=== PATIENT | female | born 1930 | race Caucasian/White ===

== ENCOUNTER 2020-09-05 11:55 | Emergency (ER) | payer MEDICARE ==
[~2020-09-05] VITALS: Ht 157.5 cm; Wt 46.0 kg
[2020-09-05 12:01] VITALS: BP 148/87
--- NOTE | 2020-09-05 13:33 | RAD ---
EXAM: XR KNEE 3 VIEWS_RT 09/05/2020 12:16 PM CLINICAL INDICATION: Right knee pain COMPARISON: None TECHNIQUE: 3 views of the right knee FINDINGS: No acute fracture. Alignment is normal. There is moderate medial compartment narrowing wit h small osteophytes. Lateral compartment is maintained. There are tiny patellofemoral osteophytes. Sm all joint effusion. Vascular calcifications are seen. IMPRESSION: Moderate medial compartment osteoarthrosis. Small joint effusion. Electronically signed by: Madison Kendrick MD (09/05/2020 1:31 PM) [id number]
--- NOTE | 2020-09-05 14:23 | PHYS DOC ---
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 Vazquez." Denies any falls, trauma or injury. Cannot recall home medications and is asking if she can be referred to Dr. Herrmannneys office. Pt with multiple compliants stating "I saw on tv it's cancer." Reports pain has been progressively worsening for the past few months. Denies any associated fever, rash Review of Systems: Review of Systems: Constitutional: Denies fever or chills Eyes: Denies change in visual acuity HENT: Denies nasal congestion or sore throat Respiratory: Denies cough or shortness of breath Cardiovascular: Denies chest pain or edema GI: Denies nausea, vomiting, : Denies dysuria or hematuria Musculoskeletal: Denies back pain or cva tenderness Integument: Denies rash or diaphoresis Neurologic: Denies headache, focal weakness or sensory changes Psychiatric: Denies depression or anxiety Physical Exam: PE: Constitutional: Well developed, well nourished, no acute distress, non-toxic appearance. HENT: Normocephalic, atraumatic, Eyes: EOMI, conjunctiva normal, no discharge. Neck: Normal range of motion, supple, Cardiovascular: S1/2 present, regular rhythm Lungs & Thorax: Speaking in full sentences, bilateral equal chest rise, no tachypnea or increased work of breathing Abdomen: soft, no tenderness, Skin: Warm, dry, no erythema, no rash. [] Back: No tenderness, no CVA tenderness. [] Extremities: No tenderness, no cyanosis, no lower extremity edema Neurologic: Alert and oriented X 3, normal motor function, normal sensory function, no focal deficits noted. [] Psychologic: Affect normal, judgement normal, mood normal. [] Current Patient Data: Vital Signs: Vital Signs Date Time Temp Pulse Resp B/P (MAP) Pulse Ox O2 Delivery O2 Flow Rate FiO2 09/05/20 12:01 98.1 100 16 148/87 95 Room Air EKG: EKG: [] Radiology/Procedures: Radiology/Procedures: []IMAGING REPORT Signed PATIENT: TONA MORENO ACCOUNT: [id number] : 1930 LOCATION: ER AGE: 89 SEX: F EXAM STATUS: REG ER ORD. PHYSICIAN: VIJAY HAWTHORNE DO REASON: right kne pain PROCEDURE: KNEE RIGHT 3V EXAM: XR KNEE 3 VIEWS_RT 09/05/2020 12:16 PM CLINICAL INDICATION: Right knee pain COMPARISON: None TECHNIQUE: 3 views of the right knee FINDINGS: No acute fracture. Alignment is normal. There is moderate medial compartment narrowing with small osteophytes. Lateral compartment is maintained. There are tiny patellofemoral osteophytes. Small joint effusion. Vascular calcifications are seen. IMPRESSION: Moderate medial compartment osteoarthrosis. Small joint effusion. Electronically signed by: Madison Kendrick MD (09/05/2020 1:31 PM) [id number] DICTATED AND SIGNED BY: MADISON KENDRICK MD DATE: 09/05/20 1329 CC: VIJAY HAWTHORNE DO; MARRY DAVIS ~MTH0 0 Heart Score: C/O Chest Pain: No Risk Factors: Risk Factors: DM, Current or recent (<one month) smoker, HTN, HLP, family history of CAD, obesity. Risk Scores: Score 0 - 3: 2.5% MACE over next 6 weeks - Discharge Home Score 4 - 6: 20.3% MACE over next 6 weeks - Admit for Clinical Observation Score 7 - 10: 72.7% MACE over next 6 weeks - Early Invasive Strategies Course & Med Decision Making: Course & Med Decision Making Pertinent Labs and Imaging studies reviewed. (See chart for details) Will discharge home with strict ED return precautions were given for []. Encouraged urgent outpatient follow-up with PMD and orthopedic surgery for definitive management. Life-threatening processes were considered but are low suspicion at this time, given history, physical exam and ED workup. Pt was educated on all prescription medications and adverse effects. All patient's questions were answered and pt was stable at time of discharge. Life/limb-threatening differential includes but is not limited to, avascular nec rosis, septic arthritis, malignancy, compartment syndrome, fracture/ligamentous injury/overuse, decompression sickness, seronegative spondyloarthropathies, trauma including dislocation/fracture, Lyme disease, lupus, arthritis differentials, gout/pseudogout or decompression sickness. I have spoken with the patient and/or caregivers. I explained the patient's condition, diagnoses and treatment plan based on the information available to me at this time. I have answered the patient and/or caregiver's questions and addressed any concerns. The patient and/or caregivers have a good understanding of patient's diagnosis, condition and treatment plan as can be expected at this point. Vital signs have been stable. Patient's condition is stable and appropriate for discharge from the emergency department. Patient will pursue further outpatient evaluation with primary care physician or other designated or consulting physician as outlined in the discharge instructions. The patient and/or caregivers are agreeable to this plan of care and follow-up instructions have been explained in detail. The patient and/or caregivers have received these instructions in written form and have expressed an understanding of the discharge instructions. The patient and/or caregivers are aware that any significant change of condition or worsening of symptoms should prompt immediate return to this or the closest emergency department or call to [id number] Doll Disclaimer: Sharmila Disclaimer: This electronic medical record was generated, in whole or in part, using a voice recognition dictation system. Departure Departure: Impression: Primary Impression: Right knee pain Additional Impression: Osteoarthritis of right knee Disposition: HOME / SELF CARE / HOMELESS Condition: STABLE Referrals: MARRY DAVIS (PCP) [facility]-Dr. Guerrero or Dr. Arroyo [facility] [address], [address] [place] [address] Patient Instructions: Knee Pain, Osteoarthritis Additional Instructions: FOLLOW UP WITH ORTHOPEDICS: [facility] [address], [address] [address] EMERGENCY DEPARTMENT GENERAL DISCHARGE INSTRUCTIONS Thank you for coming to [facility] (ED) today and trusting us with you care. We trust that you had a positivie experience in our Emergency Department. If you wish to speak to the department management, you may call the director at [phone]. YOUR FOLLOW UP INSTRUCTIONS ARE FOLLOWS: 1. Do you have a private Doctor? If you do not have a private doctor, please ask for a resource list of physicians or clinics that may be able to assist you with follow up care. 2. The Emergency Physician has interpreted your x-rays. The X-Ray specialist will also review them. If there is a change in the findings, you will be notified in 48 hours when at all possible. 3. A lab test or culture has been done, your results will be reviewed and you will be notified if you need a change in treatment. ADDITIONAL INSTRUCTIONS AND INFORMATION: 1. Your care today has been supervised by a physician who is specially trained in emergency care. Many problems require more than one evaluation for a complete diagnosis and treatment. We recommend that you schedule your follow up appointment as recommended to ensure complete treatment of you illness or injury. If you are unable to obtain follow up care and continue to have a problem, or if your condition worsens, we recommend that you return to the ED. 2. We are not able to safely determine your condition over the phone nor are we able to give sound medical advice over the phone. For these safety reasons, if you call for medical advice we will ask you to come to the ED for further evaluation. 3. If you have any questions regarding these discharge instructions please call the ED at [phone]. SAFETY INFORMATION: In the interest of safety, wellness, and injury prevention; we encourage you to wear your sealbelt, if you smoke; quite smoking, and we encourage family to use a protective helmet for bicycling and other sporting events that present an increased risk for head injury. IF YOUR SYMPTOMS WORSEN OR NEW SYMPTOMS DEVELOP, OR YOU HAVE CONCERNS ABOUT YOUR CONDITION; OR IF YOUR CONDITION WORSENS WHILE YOU ARE WAITING FOR YOUR FOLLOW UP A PPOINTMENT; EITHER CONTACT YOUR PRIMARY CARE DOCTOR, THE PHYSICIAN WHOSE NAME AND NUMBER YOU WERE GIVEN, OR RETURN TO THE ED IMMEDIATELY. VIJAY HAWTHORNE DO Sep 05, 2020 14:23
== END 2020-09-05 16:13 | disposition home or self-care (01) ==
LOC: ER 11:55
DX: M17.11 Unilateral primary osteoarthritis, right knee (principal)
CPT/HCPCS: 73562; 99283

== ENCOUNTER 2020-10-09 14:26 | Emergency (ER) | payer MEDICARE ==
[~2020-10-09] VITALS: Ht 152.4 cm; Wt 50.0 kg
--- NOTE | 2020-10-09 15:21 | PHYS DOC ---
Past History Additional Past Medical Histor: constipation, blind (VINICIO CUTLER APRN) Past Surgical History: Colectomy (VINICIO CUTLER APRN) Alcohol Use: Occasionally (VINICIO CUTLER APRN) General Adult EDM: Chief Complaint: MECHANICAL FALL HPI: HPI: Patient is an 89-year-old female who presents to the ER following a fall. Patient reports that she was walking in lost her balance and fell back. She states that she hit her head on carpet. She denies any loss of consciousness. Her relative who is in the room with her states that she has got a bad right knee and sometimes that causes her to fall. Patient is complaining of pain to her right forearm. She rates the pain 10 out of 10. No treatment prior to arrival. Patient denies any head or neck pain. Patient's neck is currently in a soft c-collar that she wears due to cervical spinal issues. Patient is alert and oriented to person, place, situation. She has a history of dementia. (VINICIO CUTLER APRN) Review of Systems: Review of Systems: 14 body systems of the review of systems have been reviewed. See HPI for pertinent positive and negative responses, otherwise all other systems are neg ative, nonpertinent or noncontributory (VINICIO CUTLER APRN) Physical Exam: PE: Constitutional: Well developed, well nourished, no acute distress, non-toxic appearance. [] HENT: Normocephalic, atraumatic, bilateral external ears normal, oropharynx moist, no oral exudates, nose normal. [] Eyes: PERRL, EOMI, conjunctiva normal, no discharge. [] Neck: Normal range of motion, no tenderness, supple, no stridor, neck and soft c-collar. [] Cardiovascular:Heart rate regular rhythm, no murmur [] Lungs & Thorax: Bilateral breath sounds clear to auscultation [] Abdomen: Bowel sounds normal, soft, no tenderness, no masses, no pulsatile masses. [] Skin: Warm, dry, no erythema, no rash. [] Back: Normal range of motion, no bony spinal tenderness with palpation Extremities: No tenderness, no cyanosis, no clubbing, ROM intact, no edema. No hip or pelvis pain with palpation, no shortening or rotation of the lower extremities. Right upper extremity: Swelling and ecchymosis noted to dorsal aspect of right wrist/forearm, range of motion of hands intact, neuro intact. [] Neurologic: Alert and oriented to person, place, situation which is patient's baseline, normal motor function, normal sensory function, no focal deficits noted. [] Psychologic: Affect normal, judgement normal, mood normal. [] (VINICIO CUTLER APRN) Current Patient Data: Vital Signs: Vital Signs Date Time Temp Pulse Resp B/P (MAP) Pulse Ox O2 Delivery O2 Flow Rate FiO2 10/09/20 14:37 98.0 110 18 159/75 97 Room Air (VINICIO CUTLER APRN) EKG: EKG: [] (VINICIO CUTLER APRN) Radiology/Procedures: Radiology/Procedures: PROCEDURE: HAND RIGHT 3V XR HAND_RIGHT 3 VIEWS, XR FOREARM_RIGHT 2 VIEWS Clinical indications: Reason: fall and pain 3 view right hand study: There is a comminuted fracture of the distal right radial epiphysis with dorsal displacement of the carpus and dorsal angulation of the radial carpal articulation. Scaphoid bone appears intact. Positive ulnar variance is present. No lytic process is seen. Two-view right forearm study: No additional fracture is seen. No right elbow joint effusion is seen. No lytic process is seen. IMPRESSION: Comminuted fracture of the distal right radius with dorsal displacement of the carpus. Electronically signed by: Diya Wilson MD (10/09/2020 3:43 PM) [id number] DICTATED AND SIGNED BY: DIYA WILSON MD DATE: 10/09/20 1539 CC: EMERGENCY,DEPARTMENT; VINICIO CUTLER APRN; MARRY DAVIS ~MTH0 0 []PROCEDURE: CT HEAD AND CERVICAL SPINE WO CT HEAD AND C-SPINE WO Date: 10/09/2020 3:20 PM Clinical Indication: Reason: fall, syncope? / Spl. Instructions: / History: Comparison: None. Technique: 5 mm axial tomographic images were obtained of the head without contrast. These were viewed on brain and bone windows. Noncontrast CT of the cervical spine was performed. Sagittal and coronal reformats were performed and evaluated. One or more of the following dose reduction techniques were utilized: Automated exposure control (AEC), Adjustment of mA and/or kV according to patient size, Use of iterative reconstruction technique such as ASiR, CT scan done according to ALARA and image gently/image wisely HEAD FINDINGS: Moderate generalized cerebral and cerebellar volume loss. Moderate nonspecific periventricular hypoattenuation, most commonly seen with chronic small vessel ischemic disease. No intra- or extra-axial mass or fluid collection. No acute hemorrhage. The ventricles are normal in size, shape, and morphology. The bolivar-white matter junction is normal. The basilar cisterns are patent. The visualized paranasal sinuses are normal. The visualized portions of the orbits and globes are normal. The mastoid air cells are clear. No aggressive osseous lesion or fracture. CERVICAL SPINE FINDINGS: Nondisplaced fracture through the left C3-4 facet joint. Osseous fusion across the C3-4 facet joint on the left. No aggressive lytic or blastic osseous lesions. Moderate to severe multilevel degenerative disc space height loss. Multilevel mild and moderate spinal canal stenosis secondary to disc protrusions and marginal osteophytes. Multilevel moderate to severe neuroforaminal narrowing secondary to uncovertebral arthrosis. Multilevel moderate to severe facet arthrosis. Subcentimeter left thyroid nodule. No cervical lymphadenopathy. Bilateral carotid atherosclerosis. The visualized aerodigestive tract is normal. The visualized portions of the lungs are clear. IMPRESSION: 1. Nondisplaced fracture through the left C3-4 facet joint. 2. No acute intracranial process. Electronically signed by: Gena Morrison MD (10/09/2020 3:57 PM) [facility] DICTATED AND SIGNED BY: GENA MORRISON MD DATE: 10/09/20 1547 CC: EMERGENCY,DEPARTMENT; VINICIO CUTLER APRN; MARRY DAVIS ~MTH0 0 PROCEDURE: FOREARM RIGHT XR FOREARM_RIGHT 2 VIEWS History: Reason: post reduction / Spl. Instructions: / History: Technique: 2 views right forearm. Comparison: October 09, 2020 Findings: Interval reduction and casting right distal radius comminuted intra-articular impacted fracture, improved alignment. Ulnar styloid fracture Impression: 1. Interval reduction comminuted intra-articular right distal radius impacted fracture, improved alignment. Electronically signed by: Tahir Torres DO (10/09/2020 6:15 PM) [facility] DICTATED AND SIGNED BY: TAHIR TORRES DO DATE: 10/09/20 1812 CC: TOMAS HICKS DO; VINICIO CUTLER APRN; MARRY DAVIS ~MTH0 0 (VINICIO CUTLER APRN) Heart Score: C/O Chest Pain: No Risk Factors: Risk Factors: DM, Current or recent (<one month) smoker, HTN, HLP, family history of CAD, obesity. Risk Scores: Score 0 - 3: 2.5% MACE over next 6 weeks - Discharge Home Score 4 - 6: 20.3% MACE over next 6 weeks - Admit for Clinical Observation Score 7 - 10: 72.7% MACE over next 6 weeks - Early Invasive Strategies (VINICIO CUTLER APRN) Course & Med Decision Making: Course & Med Decision Making Pertinent Labs and Imaging studies reviewed. (See chart for details) Patient is an 89-year-old female being seen for right forearm pain following a fall. CT scan was performed of head and neck and it showed nondisplaced C. Through C4 facet joint fracture. I spoke with Dr. Sherwood is a nurse practitioner at [facility] and she advised us to continue to have patient keep her soft collar in place and follow-up with their clinic in 1 to 2 weeks. Patient's contact information provided so that she could set up follow- up appointments.. Patient had an x-ray performed of her right forearm and hand and it showed comminuted fracture of the distal right radius with dorsal displacement. I spoke with Dr. Gerber at [facility]'s Ortho group and he advised for reduction by the ER physician and discharged home with splint placed. I spoke with Dr. Hicks and discussed patient's case and he reduced p atient's wrist and sugar tong splint was placed. Repeat xray performed. It showed better alignment of fracture. pre and post patient neuro intact pre and post procedure of splint placement. Patient given follow up information for neurosurgery and orthopedics. Patient advised to take ibuprofen/tylenol at home. Patient's pain treated in the ER. I discussed with patient all findings and diagnostic testing as well as the need to follow-up with PCP for further evaluation and treatment or return to the ER if any new or worsening symptoms. Strict return precautions were also discussed at length. Patient voiced understanding and agreement with the plan. Patient is hemodynamically stable at the time of disposition. (VINICIO CUTLER APRN) Course & Med Decision Making I was the Attending physician on the above date of service of this patient. This patient was evaluated, examined, treated, and dispositioned from the emergency department by the mid-level practitioner. I personally evaluated patient and repeated certain aspects of history and physical exam. Patient and are poor historians. I made the decision to contact neurosurgery regarding patient's neck. Orthopedic services contacted regarding patient's arm with ins tructions to reduce and splint. Risks and benefits of conscious sedation versus pain control and local anesthesia with closed reduction discussed with patient and at bedside. Verbal consent obtained given risk for numerous comorbid conditions with patient to administer pain medications and do this at bedside which was well-tolerated. Patient's right hand was reduced and splinted with continued motor or sensory neuro function completely intact after recheck. Close outpatient follow-up advised Electronically signed, Tomas Hicks DO (TOMAS HICKS DO) Sharmila Disclaimer: Sharmila Disclaimer: This electronic medical record was generated, in whole or in part, using a voice recognition dictation system. (VINICIO CUTLER APRN) Departure Departure: Impression: Primary Impression: Radius fracture Additional Impression: Cervical spine fracture Qualified Codes: S12.201A - Unspecified nondisplaced fracture of third cervical vertebra, initial encounter for closed fracture Disposition: HOME / SELF CARE / HOMELESS Condition: GOOD Referrals: MARRY DAVIS (PCP) Patient Instructions: Forearm Fracture Additional Instructions: You were seen in the ER following a fall. You had a CT scan of your head neck performed that showed nondisplaced C3-C4 fractures of the facet joint. Continue to wear your soft collar for stabilization. I spoke with Dr. Sherwood at [facility] and he would like to have you follow-up with him in the office within 1 to 2 weeks. Your contact information was given to him and he should be calling you to set up an appointment. If you do not hear from his office tomorrow please call his office to set up an appointment. You can call Dr. Sherwood's office at [phone]. You were also noted to have a fracture of your right radius. This was reduced in the ER and your wrist was placed in a splint. You will need to follow-up with the orthopedic doctors in the orthopedic clinic as soon as possible. I spoke with Dr. Gerber at [facility]'s orthopedic group and he will see you in his office. Please call [phone] tomorrow to set up a follow-up appointment with him. You should perform range of motion exercises to prevent stiffness of your joints. Splints help with the pain and can promote healing but immobility can cause chronic pain over time. Please refer to these attached instructions regarding range of motion exercises. Keep the splint clean and dry avoid getting it wet. If the splint gets wet you will need to have it replaced. You should use ice and elevation to help with the swelling and pain. For the first 24 hours apply ice 20 minutes on 20 minutes off 4 times per day. Ensure that ice is in a plastic bag as to not get the splint wet. You may take NSAID medications (Tyl enol, ibuprofen, naproxen) to help with the pain. Please return to the emergency department if you develop any of the following symptoms: Increasing pain that does not improve with treatments. New numbness or tingling Warmth, redness, skin discoloration, skin breakdown, drainage from under splint or near splinted area. Increasing inability to move your extremity or digits. Foul odor coming from splint Fevers or chills Nausea or vomiting Persistent lightheadedness We would be happy to see you for any other concerning symptoms regarding your splinted extremity. EMERGENCY DEPARTMENT GENERAL DISCHARGE INSTRUCTIONS Thank you for coming to [facility] (ED) today and trusting us with you care. We trust that you had a positivie experience in our Emergency Department. If you wish to speak to the department management, you may call the director at [phone]. YOUR FOLLOW UP INSTRUCTIONS ARE FOLLOWS: 1. Do you have a private Doctor? If you do not have a private doctor, please ask for a resource list of physicians or clinics that may be able to assist you with follow up care. 2. The Emergency Physician has interpreted your x-rays. The X-Ray specialist will also review them. If there is a change in the findings, you will be notified in 48 hours when at all possible. 3. A lab test or culture has been done, your results will be reviewed and you will be notified if you need a change in treatment. ADDITIONAL INSTRUCTIONS AND INFORMATION: 1. Your care today has been supervised by a physician who is specially trained in emergency care. Many problems require more than one evaluation for a complete diagnosis and treatment. We recommend that you schedule your follow up appointment as recommended to ensure complete treatment of you illness or injury. If you are unable to obtain follow up care and continue to have a problem, or if your condition worsens, we recommend that you return to the ED. 2. We are not able to safely determine your condition over the phone nor are we able to give sound medical advice over the phone. For these safety reasons, if you call for medical advice we will ask you to come to the ED for further evaluation. 3. If you have any questions regarding these discharge instructions please call the ED at [phone]. SAFETY INFORMATION: In the interest of safety, wellness, and injury prevention; we encourage you to wear your sealbelt, if you smoke; quite smoking, and we encourage family to use a protective helmet for bicycling and other sporting events that present an increased risk for head injury. IF YOUR SYMPTOMS WORSEN OR NEW SYMPTOMS DEVELOP, OR YOU HAVE CONCERNS ABOUT YOUR CONDITION; OR IF YOUR CONDITION WORSENS WHILE YOU ARE WAITING FOR YOUR FOLLOW UP APPOINTMENT; EITHER CONTACT YOUR PRIMARY CARE DOCTOR, THE PHYSICIAN WHOSE NAME AND NUMBER YOU WERE GIVEN, OR RETURN TO THE ED IMMEDIATELY. VINICIO CUTLER APRN Oct 09, 2020 15:21 TOMAS HICKS DO Oct 11, 2020 07:21
--- NOTE | 2020-10-09 15:46 | RAD ---
XR HAND_RIGHT 3 VIEWS, XR FOREARM_RIGHT 2 VIEWS Clinical indications: Reason: fall and pain 3 view right hand study: There is a comminuted fracture of the distal right radial epiphysis with kanwal lizzie displacement of the carpus and dorsal angulation of the radial carpal articulation. Scaphoid bone appears intact. Positive ulnar variance is present. No lytic process is seen. Two-view right forearm study: No additional fracture is seen. No right elbow joint effusion is seen. No lytic process is seen. IMPRESSION: Comminuted fracture of the distal right radius with dorsal displacement of the carpus. Electronically signed by: Dave Wilson MD (10/09/2020 3:43 PM) [id number]
--- NOTE | 2020-10-09 15:59 | RAD ---
CT HEAD AND C-SPINE WO Date: 10/09/2020 3:20 PM Clinical Indication: Reason: fall, syncope? / Spl. Instructions: / History: Comparison: None. Technique: 5 mm axial tomographic images were obtained of the head without contrast. These were view ed on brain and bone windows. Noncontrast CT of the cervical spine was performed. Sagittal and lima l reformats were performed and evaluated. One or more of the following dose reduction techniques were utilized: Automated exposure control (AEC), Adjustment of mA and/or kV according to patient size, Us e of iterative reconstruction technique such as ASiR, CT scan done according to ALARA and image gentl y/image wisely HEAD FINDINGS: Moderate generalized cerebral and cerebellar volume loss. Moderate nonspecific periventricular hypoat tenuation, most commonly seen with chronic small vessel ischemic disease. No intra- or extra-axial mass or fluid collection. No acute hemorrhage. The ventricles are normal in size, shape, and morphology. The bolivar-white matter junction is normal. The basilar cisterns are paten t. The visualized paranasal sinuses are normal. The visualized portions of the orbits and globes are no rmal. The mastoid air cells are clear. No aggressive osseous lesion or fracture. CERVICAL SPINE FINDINGS: Nondisplaced fracture through the left C3-4 facet joint. Osseous fusion across the C3-4 facet joint o n the left. No aggressive lytic or blastic osseous lesions. Moderate to severe multilevel degenerative disc space height loss. Multilevel mild and moderate spinal canal stenosis secondary to disc protrusions and ma rginal osteophytes. Multilevel moderate to severe neuroforaminal narrowing secondary to uncovertebral arthrosis. Multilevel moderate to severe facet arthrosis. Subcentimeter left thyroid nodule. No cervical lymphadenopathy. Bilateral carotid atherosclerosis. Th e visualized aerodigestive tract is normal. The visualized portions of the lungs are clear. IMPRESSION: 1. Nondisplaced fracture through the left C3-4 facet joint. 2. No acute intracranial process. Electronically signed by: Coleman Willis MD (10/09/2020 3:57 PM) [facility]
--- NOTE | 2020-10-09 18:17 | RAD ---
XR FOREARM_RIGHT 2 VIEWS History: Reason: post reduction / Spl. Instructions: / History: Technique: 2 views right forearm. Comparison: October 09, 2020 Findings: Interval reduction and casting right distal radius comminuted intra-articular impacted fracture, impr carlos alignment. Ulnar styloid fracture Impression: 1. Interval reduction comminuted intra-articular right distal radius impacted fracture, improved ali gnment. Electronically signed by: Tahir Calhoun DO (10/09/2020 6:15 PM) [facility]
[2020-10-09 18:36] VITALS: BP 148/81
== END 2020-10-09 19:06 | disposition home or self-care (01) ==
LOC: ER 14:26
DX: S52.501A Unspecified fracture of the lower end of right radius, initial encounter for closed fracture (principal); S12.200A Unspecified displaced fracture of third cervical vertebra, initial encounter for closed fracture; S12.300A Unspecified displaced fracture of fourth cervical vertebra, initial encounter for closed fracture; W18.09XA Striking against other object with subsequent fall, initial encounter; Y93.01 Activity, walking, marching and hiking; Y92.89 Other specified places as the place of occurrence of the external cause; Y99.8 Other external cause status
CPT/HCPCS: 25605; 70450; 72125; 73090; 73130; 96372; 99285; J3010; 99284